=== PATIENT | male | born 1945 | race Caucasian/White ===

== ENCOUNTER → 2016-05-29 | Outpatient (CLI) | payer MEDICARE, BC ==
[~2016-05-29] MED LIST: ARTHRITIS PAIN650 M1 PO; ASPIRIN EC81 MG PO; FERROUS SULFAT325 M2 PO; FISH OIL 1,0001 EAC5 PO; FLOMAX 0.4 MG0.4 MG PO; LASIX20 MG PO; LIPITOR TAB 2020 MG PO; LOPRESSOR 50 MG50 MG PO; MELOXICAM15 MG PO; NORVASC 5 MG TAB5 MG PO; PLAVIX 75 MG TA75 MG PO; SINGULAIR10 MG PO; SPIRIVA HANDIH18 MCG INH; SYMBICORT 160-1 INHA INH; ZOCOR20 MG PO
== END ==
LOC: CT 05-22 13:30
DX: Z87.891 Personal history of nicotine dependence (principal); R91.8 Other nonspecific abnormal finding of lung field; J43.9 Emphysema, unspecified
CPT/HCPCS: G0297